=== PATIENT | male | born 1975 | race African-American/Black ===

== ENCOUNTER 2017-12-03 06:46 | Emergency (ER) | payer SELFPAY ==
[~2017-12-03] VITALS: Ht 188 cm; Wt 100.0 kg
[2017-12-03 07:11] VITALS: BP 116/84
== END 2017-12-03 07:34 | disposition left against medical advice (07) ==
LOC: ER 06:46
DX: K14.9 Disease of tongue, unspecified (principal); Z53.21 Procedure and treatment not carried out due to patient leaving prior to being seen by health care provider

== ENCOUNTER 2017-12-23 21:14 | Emergency (ER) | payer SELFPAY ==
[~2017-12-23] VITALS: Ht 188 cm; Wt 96.0 kg
[2017-12-23 21:18] VITALS: BP 147/93
== END 2017-12-24 00:40 | disposition left against medical advice (07) ==
LOC: ER 21:14
DX: Z53.21 Procedure and treatment not carried out due to patient leaving prior to being seen by health care provider (principal)

== ENCOUNTER 2018-03-18 22:02 | Emergency (ER) | payer SELFPAY ==
[~2018-03-18] VITALS: Ht 188 cm; Wt 58.0 kg
[2018-03-18 23:53] VITALS: BP 136/89
== END 2018-03-18 23:08 | disposition left against medical advice (07) ==
LOC: ER 22:02
DX: Z53.21 Procedure and treatment not carried out due to patient leaving prior to being seen by health care provider (principal); E11.9 Type 2 diabetes mellitus without complications; I10 Essential (primary) hypertension; B20 Human immunodeficiency virus [HIV] disease

== ENCOUNTER → 2019-04-07 | Outpatient (CLI) | payer SELFPAY ==
[~2019-04-07] MED LIST: BARIUM SULFATE 176 GM SUSP.RECON ONE
== END | disposition home or self-care (01) ==
LOC: RAD 07:41 → EEVIPCON 08:00
PROVIDERS: ATTEND Internal Medicine
DX: R13.10 Dysphagia, unspecified (principal)
CPT/HCPCS: 74230; 92611; Z7610

== ENCOUNTER 2020-03-21 22:18 | Emergency (ER) | payer MEDICAID ==
[~2020-03-21] VITALS: Ht 188 cm; Wt 98.0 kg
[2020-03-22] MEDS ORDERED: LORAZEPAM 1MG TABLET PO ONE (00:30)
[2020-03-22 02:00] VITALS: BP 148/92
== END 2020-03-22 02:22 | disposition home or self-care (01) ==
LOC: ER 22:18
DX: F15.10 Other stimulant abuse, uncomplicated (principal); R00.2 Palpitations; F17.210 Nicotine dependence, cigarettes, uncomplicated
CPT/HCPCS: 70360; 93005; 99283

== ENCOUNTER 2021-03-09 17:33 | Emergency (ER) | payer MEDICAID | END 2021-03-09 18:03 | disposition left against medical advice (07) | LOC: ER 17:33 | DX: Z53.21 Procedure and treatment not carried out due to patient leaving prior to being seen by health care provider (principal); J06.9 Acute upper respiratory infection, unspecified ==